=== PATIENT | male | born 1960 | race Two or more races ===

== ENCOUNTER 2024-09-30 13:58 | Outpatient (CLI) | payer OTHER | END 2024-09-30 14:04 | disposition home or self-care (01) | LOC: LAB 13:58 | PROVIDERS: ATTEND Psychiatry & Neurology Clinical Neurophysiology | DX: G70.00 Myasthenia gravis without (acute) exacerbation (principal) ==

== ENCOUNTER 2024-12-13 15:20 | Outpatient (CLI) | payer OTHER | END 2024-12-13 15:27 | disposition home or self-care (01) | LOC: RAD 15:20 | DX: R07.82 Intercostal pain (principal) ==